=== PATIENT | male | born 1955 | race Caucasian/White ===

== ENCOUNTER 2021-12-26 14:07 | Observation (INO) | payer OTHER ==
[~2021-12-26] VITALS: Ht 165.1 cm; Wt 82.6 kg
--- NOTE | 2021-12-26 14:10 | NUR ---
Placed in room 03 . Placed on library monitor, blood pressure machine and pulse oximeter. To gown for exam. Side rails up. Report given to REUBEN TOMLINSON.
[2021-12-26 14:14] VITALS: BP_SYST 149
--- NOTE | 2021-12-26 14:14 | NUR ---
PATIENT CAME IN FROM HOME C/O SUBSTERNAL LEFT-SIDED CP STARTING YESTERDAY AND CONTINUED THROUGH THE NIGHT INTO TODAY. STATES ONGOING NECK PAIN, EPIGASTRIC PAIN. PT DENIES ALCOHOL OR TOBACCO USE, N/V/F/D. PATIENT IS A&OX4, CALM AND COOPERATIVE. CARE TO BE PROVIDED ORDERED.
--- NOTE | 2021-12-26 14:18 | NUR ---
ER DR. CASILLAS AT THE BEDSIDE EXAMINING PT
--- NOTE | 2021-12-26 14:20 | NUR ---
ER at bedside examining patient.
[2021-12-26] MEDS ORDERED: LIP10 PO (14:25)
[2021-12-26] MEDS ORDERED: NOR10 PO (14:25)
[2021-12-26] MEDS ORDERED: CAT.1 PO (14:25)
[2021-12-26] MEDS ORDERED: CETI5TAB6 PO (14:25)
[2021-12-26] MEDS ORDERED: FAMO-268 PO (14:25)
[2021-12-26] MEDS ORDERED: ASPIRIN 325 MG TABLET PO ONE (14:30)
--- NOTE | 2021-12-26 14:39 | NUR ---
# 20 gauge angiocath placed to RAC. Use of asceptic technique. Opsite placed over site. Blood return noted. Blood for lab drawn from site. Flushed with 10 cc of normal saline. No evidence of infiltration noted. Patient tolerated well.
[2021-12-26 15:04] LABS: ANION GAP 6 (5-15); CALCIUM 8.7 mg/dL (8.4-11.0); CHLORIDE 101 mmol/L (98-107); CREATININE 0.82 mg/dL (0.55-1.30); GLUCOSE 101 mg/dL (70-99); UREA NITROGEN, BLOOD 12 mg/dL (8-21)
[2021-12-26 15:09] LABS: BASOPHILS % (AUTO) 0.7 % (0.0-2.0); EOSINOPHILS # (AUTO) 0.2 K/uL (0.0-0.4); EOSINOPHILS % (AUTO) 2.9 % (0.0-4.0); HEMATOCRIT 40.5 % (36-54); HEMOGLOBIN 14.3 g/dL (14.0-18.0); LYMPHOCYTES # (AUTO) 2.1 K/uL (1.0-5.5); LYMPHOCYTES % (AUTO) 32.2 % (20.5-51.5); MEAN CORPUSCULAR HEMOGLOBIN 32 pg (27-31); MEAN CORPUSCULAR HGB CONC 35 % (32-36); MEAN CORPUSCULAR VOLUME 91 fL (79.0-98.0); MONOCYTES # (AUTO) 0.7 K/uL (0.0-1.0); MONOCYTES % (AUTO) 10.1 % (1.7-9.3); NEUTROPHILS # (AUTO) 3.6 K/uL (1.8-7.7); NEUTROPHILS % (AUTO) 54.1 % (40.0-70.0); PLATELET COUNT (AUTO) 158 K/uL (130-430); RED BLOOD CELL COUNT(AUTO) 4.45 MIL/uL (4.2-6.2); RED CELL DISTRIBUTION WIDTH 12.8 % (9.0-15.0); WHITE BLOOD COUNT (AUTO) 6.6 K/uL (4.8-10.8)
[2021-12-26 15:11] LABS: ALANINE AMINOTRANSFERASE 34 U/L (12-78); ALBUMIN 4.4 g/dL (3.4-4.8); ASPARTATE AMINOTRANSFERASE 28 U/L (10-37)
[2021-12-26 15:30] LABS: GFR AFRICAN AMERICAN 120 mL/min (>90)
[2021-12-26 17:08] LABS: BILIRUBIN,URINE NEGATIVE (NEGATIVE); BLOOD, URINE NEGATIVE (NEGATIVE); CLARITY/URINE CLEAR (CLEAR); COLOR,URINE YELLOW (YELLOW); GLUCOSE,URINE NEGATIVE (NEGATIVE); KETONES,URINE NEGATIVE (NEGATIVE); LEUKOCYTE ESTERASE ,URINE NEGATIVE (NEGATIVE); PH,URINE 6.5 (5.0-8.0); PROTEIN URINE NEGATIVE (NEGATIVE); UROBILINOGEN,URINE 0.2 (0.2-1.0)
[2021-12-26 17:09] LABS: NITRITE, URINE NEGATIVE (NEGATIVE)
--- NOTE | 2021-12-26 19:34 | NUR ---
Admit bed requested Patient will be admitted to care of . Admitted to TELE unit. Diagnosis: CP Inpatient (Yes or No) N Observation (Yes or No) Y Orientation concerns or request close to nursing station (Yes or No) N Covid Status : NEG From Home (Yes or if No enter name of facility) Y
--- NOTE | 2021-12-26 20:05 | NUR ---
Received report from ED RN, and assumed patient care. Instructed patient about the unit policies, and use of call light, patient understood all the teaching and had no further questions noted at the moment, will reinforce if needed throughout the shift.
[2021-12-26 20:17] VITALS: BP_SYST 141
--- NOTE | 2021-12-26 20:21 | NUR ---
Patient will be admitted to care of MD Owens. Admitted to TELE unit. Will go to room 100A. Complete and up to date summary report printed. SBAR report given at bedside to receiving REUBEN Luna with opportunity for questions.
--- NOTE | 2021-12-26 20:45 | NUR ---
Called Dr. Roman MD is aware of patient arriving in telemetry unit. MD placed orders on [facility], will wait for orders to be verified (please see orders for further details). MD is aware of patient complaining of chest pain on the left side, no additional orders at the moment and will continue to see and monitor throughout the shift. Patient is aware of most current plan of care, no additional questions noted at the moment and will reinforce if needed throughout the shift.
[2021-12-26] MEDS ORDERED: NITROGLYCERIN 0.4 MG TAB.SUBL SL PRN (21:30)
[2021-12-26] MEDS ORDERED: 0.45% NS 1,000 ML IV ONE (21:30)
--- NOTE | 2021-12-26 21:51 | NUR ---
CONSULTATION PAGED/CALLED Reason for Consultation: chest pain Person Who was Notified: DR. Claudia Neil Consulting Physician: Dr.Paliwal Neil Welding Foreman Specialty: guest services agent Ordering Physician: Dr. Roman Rooney
--- NOTE | 2021-12-26 21:55 | NUR ---
CONSULTATION PAGED/CALLED Reason for Consultation:GERD Person Who was Notified: Nancy Consulting Physician: Drywall Finisher Foreman Specialty: GI Ordering Physician: Dr. Owens
[2021-12-27] VITALS: BP_SYST 127
--- NOTE | 2021-12-27 | NUR ---
Patient's currently sleeping in bed, no complications noted at the moment and will reinforce if needed throughout the shift. Call light is within reach, and bed is in lowest position.
[2021-12-27 04:00] VITALS: BP_SYST 123
[2021-12-27] MEDS: SUCRALFATE 1 GM TABLET PO SCH ×2 (06:02→11:02)
--- NOTE | 2021-12-27 07:30 | NUR ---
OPENING NOTE Patient in bed resting. A/O x 4, Estonian speaking. No Pain, No SOB, No distress noted. Patient stated no chest pain at this moment. Patient is able to ambulate to restroom and is currently in chair eating breakfast. IV to RAC 20 g patent and on infusion pump. All needs met at this time, Bed is locked in lowest position, call light is within reach. Will continue to monitor.
[2021-12-27 07:37] VITALS: BP_SYST 136
[2021-12-27] MEDS ORDERED: PANTOPRAZOLE SODIUM 40 MG TAB PO SCH (09:00)
[2021-12-27] MEDS ORDERED: ATORVASTATIN 10 MG TABLET PO ONE (10:30)
[2021-12-27] MEDS ORDERED: amLODIPine BESYLATE 10 MG TABLET PO ONE (10:30)
[2021-12-27] MEDS ORDERED: cloNIDine HCL 0.1 MG TABLET PO ONE (10:30)
[2021-12-27 11:24] VITALS: BP_SYST 139
[2021-12-27] MEDS ORDERED: SUCR1TAB31 PO (11:30)
[2021-12-27] MEDS ORDERED: PRO40 PO (11:30)
[2021-12-27 11:36] VITALS: BP_SYST 130
--- NOTE | 2021-12-27 12:05 | NUR ---
D/C Patient Patient given medication reconciliation form and D/C instructions. Exit Care provided. Patient verbalized understanding. MD discussed with patient the results and treatment provided. Ambulatory with steady gait for discharge to home. Patient in stable condition, ID band removed. IV catheter removed, intact and dressing applied, no active bleeding.Patient educated on pain management. All belongings sent with patient.
[2021-12-27] MEDS ORDERED: cloNIDine HCL 0.1 MG TABLET PO SCH (21:00)
[2021-12-27] MEDS ORDERED: ATORVASTATIN 10 MG TABLET PO SCH (21:00)
[2021-12-28] MEDS ORDERED: amLODIPine BESYLATE 10 MG TABLET PO SCH (09:00)
== END 2021-12-27 18:03 | disposition home or self-care (01) ==
LOC: SED 14:07 → STU 19:28
PROVIDERS: ADMIT Internal Medicine; ATTEND Internal Medicine
DX: R07.89 Other chest pain (principal); Z20.822 Contact with and (suspected) exposure to COVID-19; I10 Essential (primary) hypertension; K21.9 Gastro-esophageal reflux disease without esophagitis; C61 Malignant neoplasm of prostate; B19.20 Unspecified viral hepatitis C without hepatic coma; K74.60 Unspecified cirrhosis of liver; E78.5 Hyperlipidemia, unspecified; E78.00 Pure hypercholesterolemia, unspecified; E66.9 Obesity, unspecified; Z88.0 Allergy status to penicillin; Z79.899 Other long term (current) drug therapy
CPT/HCPCS: 96360; 80053; 85025; 84484; 36415; 93005; 71045; 99285; 81003; 87426; 96361; 93306; G0378 ×2